=== PATIENT | female | born 1955 | race Caucasian/White ===

== ENCOUNTER 2023-10-23 06:00 | Outpatient (RCR) | payer MEDICARE, SELFPAY | END 2023-11-05 23:59 | disposition home or self-care (01) | LOC: GPT 06:00 | PROVIDERS: Visit Provider Family Medicine | DX: R26.81 Unsteadiness on feet (principal); R26.0 Ataxic gait; R53.1 Weakness | CPT/HCPCS: 97112; 97162 ==

== ENCOUNTER 2023-11-06 06:00 | Outpatient (RCR) | payer MEDICARE, SELFPAY | END 2023-12-06 23:59 | disposition home or self-care (01) | LOC: GPT 06:00 | PROVIDERS: Visit Provider Family Medicine | DX: R26.81 Unsteadiness on feet (principal); R26.0 Ataxic gait | CPT/HCPCS: 97110; 97112; 97530 ==

== ENCOUNTER 2023-12-07 06:00 | Outpatient (RCR) | payer MEDICARE, SELFPAY | END 2024-01-05 23:59 | disposition home or self-care (01) | LOC: GPT 06:00 | PROVIDERS: Visit Provider Family Medicine | DX: R26.81 Unsteadiness on feet (principal); R53.1 Weakness; R26.0 Ataxic gait | CPT/HCPCS: 97110; 97112; 97164 ==

== ENCOUNTER 2024-01-06 06:00 | Outpatient (RCR) | payer MEDICARE, SELFPAY | END 2024-02-05 23:59 | disposition home or self-care (01) | LOC: GPT 06:00 | PROVIDERS: Visit Provider Family Medicine | DX: R26.81 Unsteadiness on feet (principal); R26.0 Ataxic gait; R53.1 Weakness | CPT/HCPCS: 97110; 97112 ==

== ENCOUNTER 2024-01-14 06:00 | Outpatient (RCR) | payer MEDICARE, SELFPAY | END 2024-02-05 23:59 | disposition home or self-care (01) | LOC: GPT 06:00 | PROVIDERS: Visit Provider Family Medicine | DX: R42 Dizziness and giddiness (principal); R26.81 Unsteadiness on feet | CPT/HCPCS: 97110; 97112; 97162 ==

== ENCOUNTER 2024-02-06 06:00 | Outpatient (RCR) | payer MEDICARE, SELFPAY | END 2024-03-06 23:59 | disposition home or self-care (01) | LOC: GPT 06:00 | PROVIDERS: Visit Provider Family Medicine | DX: R42 Dizziness and giddiness (principal); R26.81 Unsteadiness on feet | CPT/HCPCS: 97110; 97112 ==

== ENCOUNTER 2024-03-07 06:00 | Outpatient (RCR) | payer MEDICARE, SELFPAY | END 2024-04-06 23:59 | disposition home or self-care (01) | LOC: GPT 06:00 | PROVIDERS: Visit Provider Family Medicine | DX: R42 Dizziness and giddiness (principal); R26.81 Unsteadiness on feet | CPT/HCPCS: 97110 ==

== ENCOUNTER 2024-07-04 11:15 | Outpatient (RCR) | payer MEDICARE, SELFPAY | END 2024-07-07 23:59 | disposition home or self-care (01) | LOC: SPT 11:15 | PROVIDERS: Visit Provider Family Medicine | DX: R42 Dizziness and giddiness (principal) | CPT/HCPCS: 97110; 97161 ==